=== PATIENT | female | born 1975 | race Caucasian/White ===

== ENCOUNTER 2025-07-10 12:18 | Emergency (ER) | payer OTHER ==
[~2025-07-10] VITALS: Ht 170.2 cm; Wt 56.9 kg
[2025-07-10 12:41] VITALS: TEMP 98.2
[2025-07-10 13:15] LABS: CALCIUM, SERUM 10.0 mg/dL (8.5-10.1); CREATININE 0.9 mg/dL (0.6-1.3); SODIUM SERUM 141.0 mmol/L (136-145); UREA NITROGEN, BLOOD 11.0 mg/dL (7-18)
[2025-07-10 13:21] LABS: PLATELET COUNT (AUTO) 241 K/uL (150-450); RED BLOOD CELL COUNT(AUTO) 5.07 MIL/uL (4.0-5.2); RED CELL DISTRIBUTION WIDTH 13.1 % (11.5-15.0); WHITE BLOOD COUNT (AUTO) 5.5 K/uL (4.3-11.0)
[2025-07-10 14:00] VITALS: BP 118/79; O2SAT 98
== END 2025-07-10 14:55 | disposition left against medical advice (07) ==
LOC: ER 12:23
DX: G93.9 Disorder of brain, unspecified (principal); R20.2 Paresthesia of skin; R42 Dizziness and giddiness; R10.2 Pelvic and perineal pain; Z60.2 Problems related to living alone
CPT/HCPCS: 36415; 70450-TC; 80048-TC; 84702-TC; 85025-TC